=== PATIENT | female | born 2000 | race Hispanic/Latino ===

== ENCOUNTER 2024-04-22 08:21 | Emergency (ER) | payer BC, SELFPAY ==
[2024-04-22 08:43] VITALS: BP 120/76; PULSE 101; RESP 16; TEMP 37.4; O2SAT 100
--- NOTE | 2024-04-22 09:03 | ED.SKABFB ---
HPI - Skin/Abscess/Foreign Bdy General Chief complaint: Skin/Abscess/Foreign Body Stated complaint: Arm Rash Time Seen by Provider: 04/22/24 08:53 Source: patient and RN notes reviewed Mode of arrival: ambulatory Limitations: no limitations History of Present Illness HPI narrative: Patient presents today complaining of a bumpy rash to her right hand and forearm that began to itch this morning. Patient just returned from a vacation to [place] and states she has not had any contact with anything abnormal. No new medications or foods. No new household products. She has a few bumps on her left hand, but states they are not itching. She has tried no [id number] treatment prior to arrival. Related Data Home Medications Medication Instructions Recorded Confirmed Humalog KwikPen Insulin 04/22/24 dapagliflozin propanediol 10 mg mg 04/22/24 tablet (Farxiga) glimepiride 2 mg tablet mg 04/22/24 levothyroxine 125 mcg tablet mcg 04/22/24 (Unithroid) lisinopril 40 mg tablet mg 04/22/24 metformin 500 mg tablet,extended mg PO 04/22/24 release 24 hr Allergies Allergy/AdvReac Type Severity Reaction Status Date / Time No Known Allergies Allergy Mild Verified 04/22/24 08:45 Review of Systems Review of Systems: CONSTITUTIONAL: Denies body aches, fever, chills, or sweats. EYES: Denies visual changes, redness, or discharge. ENT: Denies rhinorrhea, congestion, sore throat, or otalgia. CARDIOVASCULAR: Denies chest pain, palpitations, or edema. RESPIRATORY: Denies cough or dyspnea. GASTROINTESTINAL: Denies abdominal pain, nausea, vomiting, or diarrhea. GENITOURINARY: Denies dysuria or hematuria. SKIN: + pruritic rash MUSCULOSKELETAL: Denies back pain, joint pain, or myalgia. NEUROLOGIC: Denies headache, numbness, tingling, or weakness. PSYCH: Denies depression or anxiety. [facility] Past Medical History Medical History (Updated 04/22/24 @ 09:08 by Glo Santiago, [employer], BC) Diabetes Hypertension Hypothyroidism Comments At time of signature, I have reviewed and agree with nursing past medical, surgical, social and family history unless otherwise noted. Please see nursing chart for further information. There is no relevant family history pertinent to the presenting complaint Exam Narrative: GENERAL: Well-appearing, well-nourished, and in no acute distress. HEAD: Normocephalic, atraumatic. EYES: EOMI. No redness or drainage. Conjunctivae normal. ENT: Mucous membranes pink and moist. NECK: Normal AROM. CHEST: No respiratory distress. EXTREMITIES: Normal range of motion. No edema. SKIN: Warm, dry. Capillary refill normal. Normal skin turgor. Faintly erythematous papular rash to the dorsum of both hands, extending up the dorsum of the right wrist to the forearm. No vesicles or drainage. No induration. No signs of infection. NEURO: No focal deficits. Alert and oriented x3. Gait steady. PSYCH: Normal affect. No signs of depression or anxiety. Course Course Level of Care: Express Care Visit Vital Signs Vital signs: Vital Signs Temperature 99.3 F 04/22/24 08:43 Pulse Rate 101 H 04/22/24 08:43 Respiratory Rate 16 04/22/24 08:43 Pulse Oximetry 100 04/22/24 08:43 Oxygen Delivery Room Air 04/22/24 08:43 Temperature 99.3 F 04/22/24 08:43 Pulse Rate 101 H 04/22/24 08:43 Respiratory Rate 16 04/22/24 08:43 Pulse Oximetry 100 04/22/24 08:43 Oxygen Delivery Room Air 04/22/24 08:43 Reviewed MDM - Skin/Abscess/Foreign Bdy MDM Narrative Medical decision making narrative: Patient's exam is consistent with contact dermatitis. Prescription for triamcinolone sent to pharmacy. Anticipatory guidance given. Differential Diagnosis Differential diagnosis: Likely urticaria, cellulitis, eczema, insect bites, impetigo and contact dermatitis Critical Care Time Critical Care Time Critical Care Time: No Discharge Plan Discharge Clinical Impression: Contact d
== END 2024-04-22 09:15 | disposition home or self-care (01) ==
PROVIDERS: Emergency Provider Nurse Practitioner
DX: L25.9 Unspecified contact dermatitis, unspecified cause (principal); E11.9 Type 2 diabetes mellitus without complications; I10 Essential (primary) hypertension; E03.9 Hypothyroidism, unspecified
CPT/HCPCS: 99213; G0463

== ENCOUNTER 2024-08-08 18:32 | Emergency (ER) | payer BC, SELFPAY ==
[2024-08-08 18:34] VITALS: BP 156/110; PULSE 97; RESP 20; TEMP 36.3; O2SAT 100
--- NOTE | 2024-08-08 18:36 | ED.WOUNDLAC ---
HPI - Wound/Laceration General Chief Complaint: Wound/Laceration Stated Complaint: Left Hand Finger Laceration Time Seen by Provider: 08/08/24 18:40 Source: patient, RN notes reviewed and old records reviewed Mode of arrival: ambulatory Limitations: no limitations History of Present Illness HPI narrative: 24-year-old female presents to the [facility] with a laceration to the middle left finger distal aspect. Patient was using a mandoline would making dinner when she sliced the skin from the distal aspect of the left middle finger, no nail bed involvement. Unknown last Tdap Patient tetanus UTD: No Related Data Home Medications Medication Instructions Recorded Confirmed Humalog KwikPen Insulin 04/22/24 dapagliflozin propanediol 10 mg mg 04/22/24 tablet (Farxiga) glimepiride 2 mg tablet mg 04/22/24 levothyroxine 125 mcg tablet mcg 04/22/24 (Unithroid) lisinopril 40 mg tablet mg 04/22/24 metformin 500 mg tablet,extended mg PO 04/22/24 release 24 hr Allergies Allergy/AdvReac Type Severity Reaction Status Date / Time No Known Allergies Allergy Mild Verified 04/22/24 08:45 Review of Systems Review of Systems: All systems reviewed & are unremarkable except as noted in HPI and below Constitutional: Constitutional: Reports no additional constitutional complaints Eyes: Eyes: Reports no additional eye complaints ENT: Reports system reviewed and no additional complaints, except as documented Cardiovascular: Cardiovascular: Reports no additional cardiovascular complaints, Denies chest pain and Denies dyspnea Respiratory: Respiratory: Reports no additional respiratory complaints, Denies chest congestion, Denies cough and Denies dyspnea Gastrointestinal: Gastrointestinal: Reports no additional gastrointestinal complaints, Denies abdominal pain, Denies nausea and Denies vomiting Musculoskeletal: Musculoskeletal: Reports no additional musculoskeletal complaints Integumentary/Breasts: Skin/Breast: Reports as per HPI Neurologic: Reports system reviewed and no additional complaints, except as documented Psychiatric: Psychiatric: Reports no additional psychiatric complaints Allergic/Immunologic: Allergic/Immunologic: Reports no additional allergic/immunologic complaints [facility] Past Medical History Medical History Diabetes Hypertension Hypothyroidism Comments At the time of my signature, I reviewed and agree with the nursing past medical, surgical, social, and family history. There is no relevant family history pertinent to the patient complaint. Exam Const: General: cooperative, healthy appearing, comfortable, no acute distress, well developed, alert and well nourished Nutritional Appearance: well nourished and obese Orientation/consciousness: patient oriented x3 Limitations: no limitations HENMT: Head: normal to inspection Ears: hearing grossly normal bilaterally and external ears normal Face/Nose/Sinus: Normal external nose present, Normal nares present, Normal nasal mucous membranes and turbinates present, normal facial exam and face symmetric Face and sinus: normal facial exam and face symmetric Eyes: General: appearance normal, both eyes and all related structures Alignment and Position: alignment normal Periorbital: periorbital findings normal Neck: Neck: normal visual inspection, full ROM, no lymphadenopathy and no meningeal signs Chest: Chest palpation & inspection: normal inspection of the chest Resp: Effort & Inspection: normal respiratory effort and able to speak in complete sentences Cardio: Rate: regular rate Skin: General skin exam: normal color and no rashes or lesions noted Lesions: no lesions Rashes: no rashes Trauma: no lacerations or abrasions Other: Left 3rd digit 1 x 1 avulsion of skin distal aspect Neuro: General: patient oriented x3, gait normal, tone normal, moves all extremities and no meningeal signs C
[2024-08-08] MEDS: TETANUS,DIPHTHERIA,AC PERTUSSIS ADULT (0.5 ML) BOOSTRIX IM (18:51)
[2024-08-08] MEDS: CELLULOSE OXIDIZED 2 x 14 INCH 1 PKT XX (18:51)
== END 2024-08-08 19:15 | disposition home or self-care (01) ==
PROVIDERS: Emergency Provider Nurse Practitioner; PCP Physician Assistant
DX: S61.203A Unspecified open wound of left middle finger without damage to nail, initial encounter (principal); W27.4XXA Contact with kitchen utensil, initial encounter; Y93.G3 Activity, cooking and baking; Z23 Encounter for immunization; E11.9 Type 2 diabetes mellitus without complications; I10 Essential (primary) hypertension; E03.9 Hypothyroidism, unspecified
CPT/HCPCS: 90471; 90715; 99213; G0463